=== PATIENT | male | born 1960 | race Caucasian/White ===

== ENCOUNTER 2022-03-09 01:11 | Inpatient (IN) ==
[2022-03-09 01:58] LABS: Basophils % 0.3 % (0.0-0.8); Eosinophils % 0.3 % (0.00-10.9); Hematocrit 46.1 VOL% (42.0-52.0); Hemoglobin 15.3 GM/DL (14.0-18.0); Immature Granulocytes % 0.3 %; Immature Granulocytes Absolute 0.02 #; Lymphocytes # 1.1 10*3/uL (1.4-4.0); Mean Corpuscular HGB Conc 33.2 GM/DL (32-36); Mean Corpuscular Volume 88.1 FL (87-102); Monocytes # 0.7 10*3/uL (0.11-0.8); Monocytes % 11.3 % (1.7-12.7); Neutrophils % 69.8 % (38.7-73.9); Platelet Count 233 T/CUMM (130-400); Red Blood Count 5.23 MC/CUMM (3.8-5.5); White Blood Count 6.2 T/CUMM (4-12)
[2022-03-09] MEDS ORDERED: ONDANSETRON 4 MG/2 ML VIAL IV STA (01:58)
[2022-03-09] MEDS ORDERED: methylPREDNISolone SOD SUC 125 MG/2 ML VIAL IV STA (01:58)
[2022-03-09] MEDS ORDERED: MORPHINE 2 MG/1 ML SYRINGE IV STA (01:58)
[2022-03-09] MEDS ORDERED: ASPIRIN 325 MG TABLET PO STA (01:58)
[2022-03-09] MEDS ORDERED: FUROSEMIDE 100 MG/10 ML VIAL IV STA (01:58)
[2022-03-09] MEDS ORDERED: NITROGLYCERIN 2% OINT 1 INCH/GM PACK TOP STA (01:58)
[2022-03-09] MEDS ORDERED: ALBUTEROL/IPRATROPIUM 3 ML NEB RESP TX STA (01:58)
[2022-03-09 02:10] LABS: PT Patient Result 11.1 SECS (10.5-12.0); Partial Thromboplastin Time 24.1 SECS (23.7-32.9)
[2022-03-09 02:21] LABS: Albumin 3.7 G/DL (3.4-5.0); Bilirubin,Total 0.4 MG/DL (0.20-1.00); Calcium 8.5 MG/DL (8.5-10.1); Osmolality,Calculated 279.5 MOS/KG (273-304); Potassium 3.3 MMOL/L (3.5-5.1); Total Protein 7.1 G/DL (6.4-8.2)
[2022-03-09] MEDS ORDERED: POTASSIUM CHLORIDE 20 MEQ TABLET PO STA (02:46)
[2022-03-09] MEDS ORDERED: hydrALAZINE 20 MG/1 ML VIAL IV PRN (03:23)
[2022-03-09] MEDS ORDERED: NICOTINE 21 MG/24 HR PATCH TRANSDERM PRN (03:23)
[2022-03-09] MEDS ORDERED: GLUCAGON 1 MG VIAL IM PRN (03:23)
[2022-03-09] MEDS ORDERED: ACETAMINOPHEN 325 MG TABLET PO PRN (03:23)
[2022-03-09] MEDS ORDERED: MORPHINE 2 MG/1 ML SYRINGE IV PRN (03:23)
[2022-03-09] MEDS ORDERED: ONDANSETRON 4 MG/2 ML VIAL IV PRN (03:23)
[2022-03-09] MEDS ORDERED: DEXTROSE 10% 250 ML BAG IV PRN (03:30)
[2022-03-09 04:37] LABS: Barbiturates Screen,Urine Negative (Negative); Benzodiazepines Screen,Urine Negative (Negative); Cannabinoid Screen,Urine Positive (Negative); Opiate Screen,Urine Negative (Negative); Phencyclidine Screen,Urine Negative (Negative)
[2022-03-09] MEDS: INSULIN LISPRO 100 UNIT/ML SUBCUT SCH ×3 (07:37→16:42)
[2022-03-09] MEDS: RIVAROXABAN 20 MG TABLET PO SCH (09:47)
[2022-03-09] MEDS: FUROSEMIDE 40 MG/4 ML VIAL IV SCH (09:47)
[2022-03-09] MEDS: PANTOPRAZOLE 40 MG TABLET PO SCH (09:48)
[2022-03-09] MEDS: POTASSIUM CHLORIDE 20 MEQ TABLET PO PRN (09:48)
[2022-03-09] MEDS ORDERED: VALSARTAN 80 MG TABLET PO SCH (10:45)
[2022-03-09] MEDS: COLLAGENASE OINT 30 GM TUBE TOP SCH (16:42)
[2022-03-09] MEDS: ROSUVASTATIN 20 MG TABLET PO SCH (21:35)
[2022-03-09] MEDS: METOPROLOL TARTRATE 25 MG TABLET PO SCH (21:35)
[2022-03-10] MEDS: INSULIN LISPRO 100 UNIT/ML SUBCUT SCH ×5 (01:04→21:59)
[2022-03-10 05:57] LABS: Basophils % 0.1 % (0.0-0.8); Eosinophils % 0.1 % (0.00-10.9); Hematocrit 46.1 VOL% (42.0-52.0); Immature Granulocytes % 0.3 %; Immature Granulocytes Absolute 0.02 #; Lymphocytes # 1.5 10*3/uL (1.4-4.0); Lymphocytes % 23.1 % (21.2-54.2); Mean Corpuscular HGB Conc 32.5 GM/DL (32-36); Mean Corpuscular Volume 89.5 FL (87-102); Monocytes # 0.7 10*3/uL (0.11-0.8); Monocytes % 9.9 % (1.7-12.7); Neutrophils % 66.5 % (38.7-73.9); Platelet Count 204 T/CUMM (130-400); Red Blood Count 5.15 MC/CUMM (3.8-5.5); Red Cell Distribution Width 13.9 % (9.3-17.3); White Blood Count 6.7 T/CUMM (4-12)
[2022-03-10 06:15] LABS: Calcium 8.7 MG/DL (8.5-10.1); Osmolality,Calculated 286.5 MOS/KG (273-304); Potassium 3.7 MMOL/L (3.5-5.1)
[2022-03-10 06:49] LABS: Calcium 8.4 MG/DL (8.5-10.1); Osmolality,Calculated 290.3 MOS/KG (273-304); Potassium 3.8 MMOL/L (3.5-5.1)
[2022-03-10] MEDS: PANTOPRAZOLE 40 MG TABLET PO SCH (08:50)
[2022-03-10] MEDS: ASPIRIN EC 81 MG TABLET PO SCH (08:50)
[2022-03-10] MEDS: FUROSEMIDE 40 MG/4 ML VIAL IV SCH (08:50)
[2022-03-10] MEDS: VALSARTAN 80 MG TABLET PO SCH (08:50)
[2022-03-10] MEDS: COLLAGENASE OINT 30 GM TUBE TOP SCH (08:50)
[2022-03-10] MEDS: RIVAROXABAN 20 MG TABLET PO SCH (08:50)
[2022-03-10] MEDS: METOPROLOL TARTRATE 25 MG TABLET PO SCH (09:00)
[2022-03-10] MEDS ORDERED: amLODIPine 5 MG TABLET PO ONE (09:05)
[2022-03-10] MEDS ORDERED: carvediloL 3.125 MG TABLET PO ONE (09:06)
[2022-03-10] MEDS: ROSUVASTATIN 20 MG TABLET PO SCH (21:59)
[2022-03-10] MEDS: carvediloL 3.125 MG TABLET PO SCH (21:59)
[2022-03-11 07:19] LABS: Basophils % 0.3 % (0.0-0.8); Eosinophils # 0.1 10*3/uL (0.0-0.87); Hematocrit 46.9 VOL% (42.0-52.0); Hemoglobin 15.3 GM/DL (14.0-18.0); Immature Granulocytes % 0.7 %; Immature Granulocytes Absolute 0.04 #; Lymphocytes # 1.2 10*3/uL (1.4-4.0); Lymphocytes % 20.1 % (21.2-54.2); Mean Corpuscular HGB Conc 32.6 GM/DL (32-36); Mean Platelet Volume 10.4 FL (9.6-12.0); Monocytes # 0.6 10*3/uL (0.11-0.8); Monocytes % 10.6 % (1.7-12.7); Neutrophils % 67.3 % (38.7-73.9); Platelet Count 227 T/CUMM (130-400); Red Blood Count 5.21 MC/CUMM (3.8-5.5); Red Cell Distribution Width 13.9 % (9.3-17.3); White Blood Count 5.9 T/CUMM (4-12)
[2022-03-11 07:41] LABS: Calcium 8.8 MG/DL (8.5-10.1); Osmolality,Calculated 286.3 MOS/KG (273-304); Potassium 3.5 MMOL/L (3.5-5.1)
[2022-03-11] MEDS ORDERED: amLODIPine 2.5 MG TABLET PO SCH (09:00)
[2022-03-11] MEDS: INSULIN LISPRO 100 UNIT/ML SUBCUT SCH ×4 (09:23→20:38)
[2022-03-11] MEDS: ASPIRIN EC 81 MG TABLET PO SCH (09:24)
[2022-03-11] MEDS: PANTOPRAZOLE 40 MG TABLET PO SCH (09:24)
[2022-03-11] MEDS: VALSARTAN 80 MG TABLET PO SCH (09:25)
[2022-03-11] MEDS: carvediloL 3.125 MG TABLET PO SCH ×2 (09:26→20:57)
[2022-03-11] MEDS: FUROSEMIDE 40 MG/4 ML VIAL IV SCH (09:30)
[2022-03-11] MEDS: COLLAGENASE OINT 30 GM TUBE TOP SCH (09:41)
[2022-03-11] MEDS ORDERED: amLODIPine 2.5 MG TABLET PO ONE (11:01)
[2022-03-11] MEDS: ROSUVASTATIN 20 MG TABLET PO SCH (20:57)
[2022-03-12] MEDS ORDERED: DIAZEPAM 5 MG TABLET PO ONE (06:00)
[2022-03-12] MEDS ORDERED: diphenhydrAMINE CAP 25 MG CAPSULE PO ONE (06:00)
[2022-03-12 06:11] LABS: Basophils % 0.2 % (0.0-0.8); Eosinophils # 0.1 10*3/uL (0.0-0.87); Hematocrit 47.3 VOL% (42.0-52.0); Hemoglobin 15.1 GM/DL (14.0-18.0); Immature Granulocytes % 0.4 %; Immature Granulocytes Absolute 0.02 #; Lymphocytes # 1.4 10*3/uL (1.4-4.0); Lymphocytes % 27.5 % (21.2-54.2); Mean Corpuscular HGB Conc 31.9 GM/DL (32-36); Mean Corpuscular Volume 90.1 FL (87-102); Mean Platelet Volume 10.5 FL (9.6-12.0); Monocytes # 0.6 10*3/uL (0.11-0.8); Monocytes % 11.8 % (1.7-12.7); Neutrophils % 59.1 % (38.7-73.9); Platelet Count 189 T/CUMM (130-400); Red Blood Count 5.25 MC/CUMM (3.8-5.5); Red Cell Distribution Width 13.8 % (9.3-17.3); White Blood Count 5.1 T/CUMM (4-12)
[2022-03-12 06:29] LABS: Calcium 8.5 MG/DL (8.5-10.1); Osmolality,Calculated 285.4 MOS/KG (273-304); Potassium 3.1 MMOL/L (3.5-5.1)
[2022-03-12] MEDS: VALSARTAN 80 MG TABLET PO SCH (10:44)
[2022-03-12] MEDS: PANTOPRAZOLE 40 MG TABLET PO SCH (10:44)
[2022-03-12] MEDS: carvediloL 3.125 MG TABLET PO SCH ×2 (10:44→21:18)
[2022-03-12] MEDS: ASPIRIN EC 81 MG TABLET PO SCH (10:44)
[2022-03-12] MEDS: amLODIPine 5 MG TABLET PO SCH (10:44)
[2022-03-12] MEDS: COLLAGENASE OINT 30 GM TUBE TOP SCH (10:52)
[2022-03-12] MEDS: INSULIN LISPRO 100 UNIT/ML SUBCUT SCH ×4 (10:52→21:18)
[2022-03-12] MEDS ORDERED: HEPARIN/NACL 0.9% 2 UNITS/ML 1,000 UNIT/500 ML BAG IV ONE ×2 (11:20→11:22)
[2022-03-12] MEDS ORDERED: MIDAZOLAM 2 MG/2 ML VIAL ONE (11:53)
[2022-03-12] MEDS ORDERED: HYDROmorphone 1 MG/1 ML SYRINGE ONE ×2 (11:53→13:40)
[2022-03-12] MEDS ORDERED: HEPARIN 5,000 UNIT/1 ML VIAL ONE (12:11)
[2022-03-12] MEDS ORDERED: hydrALAZINE 20 MG/1 ML VIAL ONE (13:29)
[2022-03-12] MEDS ORDERED: CLOPIDOGREL 300 MG TABLET ONE (13:38)
[2022-03-12] MEDS: POTASSIUM CHLORIDE 20 MEQ TABLET PO PRN (17:17)
[2022-03-12] MEDS: ROSUVASTATIN 20 MG TABLET PO SCH (21:18)
[2022-03-13 05:03] LABS: Basophils % 0.1 % (0.0-0.8); Eosinophils # 0.1 10*3/uL (0.0-0.87); Eosinophils % 0.7 % (0.00-10.9); Hematocrit 49.5 VOL% (42.0-52.0); Immature Granulocytes % 0.6 %; Immature Granulocytes Absolute 0.04 #; Lymphocytes # 1.6 10*3/uL (1.4-4.0); Lymphocytes % 22.3 % (21.2-54.2); Mean Corpuscular HGB Conc 32.3 GM/DL (32-36); Mean Corpuscular Volume 89.2 FL (87-102); Mean Platelet Volume 10.2 FL (9.6-12.0); Monocytes # 0.6 10*3/uL (0.11-0.8); Monocytes % 7.8 % (1.7-12.7); Neutrophils % 68.5 % (38.7-73.9); Platelet Count 191 T/CUMM (130-400); Red Blood Count 5.55 MC/CUMM (3.8-5.5); Red Cell Distribution Width 13.9 % (9.3-17.3); White Blood Count 7.1 T/CUMM (4-12)
[2022-03-13 05:31] LABS: Calcium 8.3 MG/DL (8.5-10.1); Osmolality,Calculated 285.1 MOS/KG (273-304); Potassium 3.4 MMOL/L (3.5-5.1)
[2022-03-13] MEDS: POTASSIUM CHLORIDE 20 MEQ TABLET PO PRN ×3 (06:30→13:42)
[2022-03-13] MEDS: INSULIN LISPRO 100 UNIT/ML SUBCUT SCH ×4 (08:20→21:22)
[2022-03-13] MEDS: COLLAGENASE OINT 30 GM TUBE TOP SCH (08:38)
[2022-03-13] MEDS: amLODIPine 5 MG TABLET PO SCH (08:39)
[2022-03-13] MEDS: VALSARTAN 80 MG TABLET PO SCH (08:39)
[2022-03-13] MEDS: PANTOPRAZOLE 40 MG TABLET PO SCH (08:39)
[2022-03-13] MEDS: ASPIRIN EC 81 MG TABLET PO SCH (08:39)
[2022-03-13] MEDS: carvediloL 3.125 MG TABLET PO SCH ×2 (08:39→21:21)
[2022-03-13] MEDS: SPIRONOLACTONE 25 MG TABLET PO SCH (13:41)
[2022-03-13] MEDS: ROSUVASTATIN 20 MG TABLET PO SCH (21:21)
[2022-03-14] MEDS: RIVAROXABAN 20 MG TABLET PO SCH (09:29)
[2022-03-14] MEDS: VALSARTAN 160 MG TABLET PO SCH (09:29)
[2022-03-14] MEDS: CLOPIDOGREL 75 MG TABLET PO SCH (09:29)
[2022-03-14] MEDS: PANTOPRAZOLE 40 MG TABLET PO SCH (09:29)
[2022-03-14] MEDS: SPIRONOLACTONE 25 MG TABLET PO SCH (09:29)
[2022-03-14] MEDS: carvediloL 3.125 MG TABLET PO SCH ×2 (09:29→20:49)
[2022-03-14] MEDS: amLODIPine 5 MG TABLET PO SCH (09:29)
[2022-03-14] MEDS: INSULIN LISPRO 100 UNIT/ML SUBCUT SCH ×4 (09:30→20:56)
[2022-03-14] MEDS: DAPAGLIFLOZIN 10 MG TABLET PO SCH (09:33)
[2022-03-14] MEDS: COLLAGENASE OINT 30 GM TUBE TOP SCH (10:09)
[2022-03-14 12:39] LABS: Albumin 3.5 G/DL (3.4-5.0); Bilirubin,Total 0.7 MG/DL (0.20-1.00); Calcium 8.6 MG/DL (8.5-10.1); Osmolality,Calculated 287.3 MOS/KG (273-304); Potassium 4.2 MMOL/L (3.5-5.1); Total Protein 6.9 G/DL (6.4-8.2)
[2022-03-14] MEDS: ROSUVASTATIN 20 MG TABLET PO SCH (20:49)
[2022-03-15] MEDS: DAPAGLIFLOZIN 10 MG TABLET PO SCH (10:41)
[2022-03-15] MEDS: VALSARTAN 160 MG TABLET PO SCH (10:41)
[2022-03-15] MEDS: amLODIPine 5 MG TABLET PO SCH (10:41)
[2022-03-15] MEDS: PANTOPRAZOLE 40 MG TABLET PO SCH (10:42)
[2022-03-15] MEDS: CLOPIDOGREL 75 MG TABLET PO SCH (10:42)
[2022-03-15] MEDS: INSULIN LISPRO 100 UNIT/ML SUBCUT SCH ×5 (10:42→21:40)
[2022-03-15] MEDS: SPIRONOLACTONE 25 MG TABLET PO SCH (10:42)
[2022-03-15] MEDS: carvediloL 3.125 MG TABLET PO SCH ×2 (10:42→21:40)
[2022-03-15] MEDS: RIVAROXABAN 20 MG TABLET PO SCH (10:43)
[2022-03-15] MEDS: COLLAGENASE OINT 30 GM TUBE TOP SCH (10:44)
[2022-03-15] MEDS: ROSUVASTATIN 20 MG TABLET PO SCH (21:40)
[2022-03-16] MEDS: SPIRONOLACTONE 25 MG TABLET PO SCH (09:32)
[2022-03-16] MEDS: amLODIPine 5 MG TABLET PO SCH (09:32)
[2022-03-16] MEDS: PANTOPRAZOLE 40 MG TABLET PO SCH (09:32)
[2022-03-16] MEDS: carvediloL 3.125 MG TABLET PO SCH (09:33)
[2022-03-16] MEDS: VALSARTAN 160 MG TABLET PO SCH (09:33)
[2022-03-16] MEDS: DAPAGLIFLOZIN 10 MG TABLET PO SCH (09:33)
[2022-03-16] MEDS: CLOPIDOGREL 75 MG TABLET PO SCH (09:33)
[2022-03-16] MEDS: RIVAROXABAN 20 MG TABLET PO SCH (09:36)
[2022-03-16] MEDS: COLLAGENASE OINT 30 GM TUBE TOP SCH (09:37)
[2022-03-16] MEDS: INSULIN LISPRO 100 UNIT/ML SUBCUT SCH ×2 (12:30→13:52)
[2022-03-16 12:36] VITALS: BP 145/81
== END 2022-03-16 15:59 | disposition home health service (06) | DRG 252 ==
LOC: N.ED 01:11 → N.EDINP 01:11 → N.TELES 05:23 → SUATTDRO 14:35
PROVIDERS: ADMIT Internal Medicine; ATTEND Internal Medicine